=== PATIENT | female | born 1960 | race Caucasian/White ===

== ENCOUNTER 2020-08-08 09:12 | Emergency (ER) | payer MEDICARE, MEDICAID ==
[~2020-08-08] VITALS: Ht 167.6 cm; Wt 100.0 kg
[2020-08-08 09:24] VITALS: BP 142/94
[2020-08-08] MEDS ORDERED: normal saline 1000ML IV soln IVB ONE (09:30)
[2020-08-08] MEDS ORDERED: ondansetron/PF 4mg/2ml inj IV ONE (09:30)
[2020-08-08 10:30] LABS: BASOPHILS # (AUTO) 0.1 X10'3 (0-0.2); BASOPHILS % (AUTO) 0.7 % (0-1); EOSINOPHILS # (AUTO) 0.1 X10'3 (0-0.9); EOSINOPHILS % (AUTO) 1.3 % (0-6); HEMOGLOBIN 13.2 g/dl (12.0-16.0); LYMPHOCYTES # (AUTO) 1.2 X10'3 (1.1-4.8); LYMPHOCYTES % (AUTO) 13.2 % (21-51); MEAN CORPUSCULAR HGB CONC 32.2 g/dL (33.0-36.5); MEAN PLATELET VOLUME 8.7 FL (7.4-10.4); MONOCYTES # (AUTO) 0.6 X10'3 (0-0.9); MONOCYTES % (AUTO) 6.8 % (2-12); NEUTROPHILS # (AUTO) 6.9 X10'3 (1.8-7.7); PLATELET COUNT 202 X10'3 (140-440); RED CELL DISTRIBUTION WIDTH 14.1 % (11.5-14.5); WHITE BLOOD COUNT 8.9 X10'3 (4.5-11.0)
[2020-08-08 10:38] LABS: ALANINE AMINOTRANSFERASE 32 U/L (12-78); ALBUMIN 3.5 G/DL (3.4-5.0); ALBUMIN/GLOBULIN RATIO 0.9 (1.1-1.5); ALKALINE PHOSPHATASE 62 IU/L (46-116); ANION GAP 12 (8-16); ASPARTATE AMINO TRANSFERASE 17 U/L (10-37); BILIRUBIN,TOTAL 0.4 MG/DL (0.1-1.0); BLOOD UREA NITROGEN 24 MG/DL (7-18); CALCIUM 8.8 MG/DL (8.5-10.1); CHLORIDE 113 MMOL/L (99-107); CREATININE 1.33 MG/DL (0.40-0.90); GLUCOSE 156 MG/DL (70-104); LIPASE 229 U/L (73-393); POTASSIUM 4.3 MMOL/L (3.5-5.1); SODIUM 146 MMOL/L (135-145); TOTAL CARBON DIOXIDE 21.1 MMOL/L (24-32); TOTAL PROTEIN 7.3 G/DL (6.4-8.2); TROPONIN I < 0.04 NG/ML (0.0-0.05); eGFR 41 ML/MIN
[2020-08-08 11:17] LABS: CLARITY,URINE CLEAR (Clear); COLOR,URINE YELLOW (Yellow); GLUCOSE, URINE NEGATIVE (Neg); KETONES,URINE TRACE mg/dl (Neg); LEUKOCYTE ESTERASE ,URINE NEGATIVE (Neg); NITRITES, URINE NEGATIVE (Neg); OCCULT BLOOD,URINE NEGATIVE (Neg); PH,URINE 5.5 (4.8-8.0); PROTEIN,URINE TRACE mg/dl (Neg); UROBILINOGEN,URINE 0.2 E.U/dL (0.2-1.0)
[2020-08-08 11:18] LABS: UA COLLECTION TYPE CLN CATCH MIDSTREAM; URINE HCG NEGATIVE (NEG)
[2020-08-08 11:26] LABS: MUCUS STRANDS MODERATE /LPF (Neg); SQUAMOUS EPITHELIAL CELL,UR MODERATE /LPF (FEW)
[2020-08-08 11:28] LABS: BACTERIA,URINE FEW /HPF (Neg); RBC,URINE 0-2 /HPF (0-2); WBC,URINE 0-4 /HPF (0-4)
[2020-08-08] MEDS ORDERED: pantoprazole 40 MG vial IV ONE (11:50)
[2020-08-08] MEDS ORDERED: mag hydrox/Alum hydrox/simeth 30ml oral suspension PO ONE (11:50)
[2020-08-08] MEDS ORDERED: iohexol 350MG/ML 100ml bottle IV ONE (12:48)
[2020-08-08] MEDS ORDERED: iohexol 300mg/ml 100ml inj. ONE (12:49)
[2020-08-08] MEDS ORDERED: MESSAGE TO NURSING PO SCH (13:00)
[2020-08-08] MEDS ORDERED: LOPE2TAB25 PO ×2 (13:42→13:47)
[2020-08-08] MEDS ORDERED: LACT1CAP26 PO (13:42)
[2020-08-08] MEDS ORDERED: PANT-47 PO (13:42)
== END 2020-08-08 13:56 | disposition home or self-care (01) ==
LOC: ER 09:13
DX: K52.9 Noninfective gastroenteritis and colitis, unspecified (principal); E11.9 Type 2 diabetes mellitus without complications; Z90.49 Acquired absence of other specified parts of digestive tract; Z88.2 Allergy status to sulfonamides; Z88.1 Allergy status to other antibiotic agents; Z88.8 Allergy status to other drugs, medicaments and biological substances; Z79.899 Other long term (current) drug therapy
CPT/HCPCS: 36415; 74177; 80053; 81001; 81025; 83690; 84484; 85025; 93005; 96361; 96374; 99285; C9113; J7030; Q9967

== ENCOUNTER 2022-12-20 04:48 | Inpatient (IN) | payer MEDICARE, MEDICAID ==
[~2022-12-20] VITALS: Ht 165.1 cm; Wt 80.0 kg
[~2022-12-20 04:48] MED LIST: LACT1CAP26 PO; LOPE2TAB25 PO; PANT-47 PO
[2022-12-20] MEDS ORDERED: normal saline 1000ML IV soln IVB ONE (05:00)
[2022-12-20] MEDS ORDERED: aspirin 325mg tablet PO ONE ×2 (05:00→10:00)
[2022-12-20] MEDS ORDERED: ondansetron/PF 4mg/2ml inj IV ONE (05:15)
[2022-12-20] MEDS ORDERED: fentaNYL/PF 50MCG/1 ML 2ML syringe IV ONE (05:15)
[2022-12-20 05:42] LABS: BASOPHILS % (AUTO) 0.2 % (0-1); EOSINOPHILS # (AUTO) 0.1 X10'3 (0-0.9); EOSINOPHILS % (AUTO) 0.9 % (0-6); HEMATOCRIT 33.8 % (35.0-45.0); HEMOGLOBIN 11.3 g/dl (12.0-16.0); LYMPHOCYTES # (AUTO) 0.5 X10'3 (1.1-4.8); LYMPHOCYTES % (AUTO) 7.4 % (21-51); MEAN CORPUSCULAR HEMOGLOBIN 29.7 PG (27.0-31.0); MEAN CORPUSCULAR HGB CONC 33.4 g/dL (33.0-36.5); MEAN CORPUSCULAR VOLUME 88.9 FL (78-98); MEAN PLATELET VOLUME 8.4 FL (7.4-10.4); MONOCYTES # (AUTO) 0.2 X10'3 (0-0.9); MONOCYTES % (AUTO) 2.8 % (2-12); NEUTROPHILS % (AUTO) 88.7 % (42-75); PLATELET COUNT 147 X10'3 (140-440); RED CELL DISTRIBUTION WIDTH 13.7 % (11.5-14.5); WHITE BLOOD COUNT 6.8 X10'3 (4.5-11.0)
[2022-12-20 05:58] LABS: ALANINE AMINOTRANSFERASE 25 U/L (12-78); ALBUMIN 3.3 G/DL (3.4-5.0); ALBUMIN/GLOBULIN RATIO 0.9 (1.1-1.5); ALKALINE PHOSPHATASE 64 IU/L (46-116); ANION GAP 14 (8-16); BILIRUBIN,TOTAL 0.4 MG/DL (0.1-1.0); BLOOD UREA NITROGEN 15 MG/DL (7-18); BUN/CREATININE RATIO 11.2 (10.0-20.0); CALCIUM 9.2 MG/DL (8.5-10.1); CHLORIDE 105 MMOL/L (99-107); CREATININE 1.34 MG/DL (0.40-0.90); GLUCOSE 229 MG/DL (70-104); SODIUM 141 MMOL/L (135-145); TOTAL CARBON DIOXIDE 22.2 MMOL/L (24-32); TOTAL PROTEIN 6.9 G/DL (6.4-8.2); eGFR 40 ML/MIN
[2022-12-20] MEDS ORDERED: acetaminophen 325mg tablet PO ONE (06:05)
[2022-12-20 06:13] LABS: ASPARTATE AMINO TRANSFERASE 35 U/L (10-37); POTASSIUM 4.7 MMOL/L (3.5-5.1)
[2022-12-20] MEDS ORDERED: morphine 10mg/ml inj. IV ONE (06:40)
--- NOTE | 2022-12-20 07:46 | NUR ---
MD AND PRIMARY RN AWARE THAT PT IS REPORTING CHEST PAIN. REPEAT EKG IS DONE
[2022-12-20 08:25] LABS: CLARITY,URINE SLIGHTLY CLOUDY (Clear); COLOR,URINE YELLOW (Yellow); GLUCOSE, URINE NEGATIVE (Neg); KETONES,URINE NEGATIVE (Neg); LEUKOCYTE ESTERASE ,URINE SMALL (Neg); NITRITES, URINE POSITIVE (Neg); OCCULT BLOOD,URINE SMALL (Neg); PROTEIN,URINE 30 mg/dl (Neg); UROBILINOGEN,URINE 0.2 E.U/dL (0.2-1.0)
[2022-12-20 08:29] LABS: UA COLLECTION TYPE STRAIGHT CATH
[2022-12-20 08:30] LABS: BACTERIA,URINE 4+ /HPF (Neg); RBC,URINE NONE SEEN /HPF (0-2); WBC,URINE TNTC /HPF (0-4)
[2022-12-20] MEDS ORDERED: CefTRIAXone 2gm/D5W 50ml BAG 50 ML IV ONE (08:30)
[2022-12-20 08:31] LABS: MUCUS STRANDS NONE SEEN /LPF (Neg); SQUAMOUS EPITHELIAL CELL,UR FEW /LPF (FEW); WBC CLUMPS,URINE MODERATE /HPF (NEGATIVE)
[2022-12-20] MEDS ORDERED: GABA-530 PO (08:41)
[2022-12-20] MEDS ORDERED: LOVA20TA2 PO (08:41)
[2022-12-20] MEDS ORDERED: HYDR-3972 PO (08:41)
[2022-12-20] MEDS ORDERED: LIPA1CAP35 PO (08:41)
[2022-12-20] MEDS ORDERED: METF-438 PO (08:41)
[2022-12-20] MEDS ORDERED: ENAL-78 PO (08:41)
[2022-12-20] MEDS ORDERED: MORP-92 PO (08:41)
[2022-12-20] MEDS ORDERED: FAMO20TA8 PO (08:41)
[2022-12-20] MEDS ORDERED: ASPI-1265 PO (08:42)
[2022-12-20] MEDS ORDERED: CALC-801 PO (08:55)
[2022-12-20] MEDS ORDERED: MULT-1141 PO (08:55)
--- NOTE | 2022-12-20 08:58 | NUR ---
ECHO AT BEDSIDE
--- NOTE | 2022-12-20 09:42 | NUR ---
Pt's BP 84/58, 10 minutes after IV morphine administration. Pt has had 2,[address] Granado at bedside. Per , RN to order and administer 1L NaCl 0.9% IVF bolus. RN ordered via VORB. RN to administer.
[2022-12-20] MEDS ORDERED: normal saline 1000ml 1,000 ML IV ONE (09:45)
--- NOTE | 2022-12-20 09:55 | NUR ---
Critical lab result: troponin 4284. RN notified Dr. Granado, who is at bedside. notified Henrry. Per , will order heparin gtt.
[2022-12-20] MEDS ORDERED: morphine 2 MG/ML inj. syringe IV PRN (10:00)
[2022-12-20] MEDS ORDERED: potassium Cl 20 mEq SR tablet PO PRN ×2 (10:00)
[2022-12-20] MEDS ORDERED: heparin 25,000 UNIT/250ml bag 250 ML IV PRN (10:00)
[2022-12-20] MEDS ORDERED: heparin 10,000 units/1 ML INJ IV ONE (10:00)
[2022-12-20] MEDS ORDERED: glucagon, human recombinant 1mg kit SUBCUT PRN (10:00)
[2022-12-20] MEDS ORDERED: acetaminophen 650mg rectal suppository RC PRN (10:00)
[2022-12-20] MEDS ORDERED: acetaminophen 325mg tablet PO PRN (10:00)
[2022-12-20] MEDS ORDERED: heparin 10,000 units/1 ML INJ IV PRN (10:00)
[2022-12-20] MEDS ORDERED: magnesium 2GM in 50ml NS 50 ML IV PRN (10:00)
[2022-12-20] MEDS ORDERED: magnesium 4gm in 100ml NS 100 ML IV PRN (10:00)
[2022-12-20] MEDS ORDERED: potassium Cl 40MEQ/1/2NS 520ml 520 ML IV PRN (10:00)
[2022-12-20] MEDS ORDERED: DEXTROSE 15 GM of carb/4 tabs (each vial/BOTTLE has 4 tablets) PO PRN ×2 (10:00)
[2022-12-20] MEDS ORDERED: magnesium hydroxide 30ml (MOM) UD suspension PO PRN (10:00)
[2022-12-20] MEDS ORDERED: ondansetron 4mg rapidly disintigrating tab PO PRN (10:00)
[2022-12-20] MEDS ORDERED: dextrose 50%-water 50ml dispensing syringe IV PRN ×2 (10:00)
[2022-12-20] MEDS ORDERED: MESSAGE TO PHARMACY PO ONE (10:00)
[2022-12-20] MEDS ORDERED: HYDROcodone/acetaminophen 5mg/325mg tablet PO PRN (10:00)
[2022-12-20] MEDS ORDERED: mag hydrox/Alum hydrox/simeth 30ml oral suspension PO PRN (10:00)
[2022-12-20] MEDS ORDERED: magnesium Cl slow-release 64mg tablet PO PRN (10:00)
[2022-12-20 10:39] LABS: APTT 24 SECONDS (22-32)
[2022-12-20] MEDS: normal saline 1000ml 1,000 ML IV SCH ×2 (10:49→20:32)
[2022-12-20 10:52] LABS: CHOL/HDL RATIO 3.6 (0.00-4.99); CHOLESTEROL 145 MG/DL (0-200); HDL CHOLESTEROL 40 MG/DL (35-60); LDL CHOLESTEROL 58 MG/DL (50-100); TRIGLYCERIDES 290 MG/DL (20-135)
--- NOTE | 2022-12-20 11:58 | NUR ---
Pt transferred to U 3009 A. VS WNL. Heparin gtt infusing at 900 u/hr. Report given to SAJI Wilde.
[2022-12-20 13:00] VITALS: BP 107/58
[2022-12-20] MEDS: HYDROcodone/acetaminophen 10/325mg tab PO PRN ×3 (13:05→20:56)
[2022-12-20] MEDS ORDERED: DIPH25CA83 PO (14:35)
[2022-12-20] MEDS: acetaminophen 325mg tablet PO PRN (15:09)
[2022-12-20] MEDS: morphine 2 MG/ML inj. syringe IV PRN (15:15)
[2022-12-20 18:00] VITALS: BP 98/51
--- NOTE | 2022-12-20 18:23 | NUR ---
Patient in room PCU 3009. I have received report from Andry LENNON and had the opportunity to ask questions and assume patient care.
--- NOTE | 2022-12-20 19:34 | NUR ---
PTT lab came back with therapeutic range at 47. New lab scheduled for 23:15.
[2022-12-20] MEDS: K and/or MAG REPLACEMENT MC SCH (20:00)
[2022-12-20] MEDS: docusate sod 100mg capsule PO SCH (20:33)
[2022-12-20] MEDS: insulin glargine (Lantus) pen - multi-dose SQ SCH (21:00)
[2022-12-20] MEDS ORDERED: temazepam 15mg capsule PO PRN (21:00)
[2022-12-20 23:15] VITALS: BP 92/52
[2022-12-20 23:58] LABS: APTT 39 SECONDS (22-32)
--- NOTE | 2022-12-21 00:39 | NUR ---
2315 PTT lab came back at 39. 3000 unit bolus was given and rate increased to 1100 units per hour. Addendum: 12/21/22 at 0042 by Marcia Obregon RN Next lab scheduled for 614.
[2022-12-21 02:00] VITALS: BP 96/68
[2022-12-21] MEDS: HYDROcodone/acetaminophen 10/325mg tab PO PRN ×5 (02:35→20:48)
[2022-12-21] MEDS: acetaminophen 325mg tablet PO PRN ×3 (03:42→22:21)
[2022-12-21] MEDS: normal saline 1000ml 1,000 ML IV SCH ×2 (06:00→17:00)
--- NOTE | 2022-12-21 06:30 | NUR ---
Problems reprioritized. Patient report given, questions answered & plan of care reviewed with Andry LENNON.
[2022-12-21 06:41] LABS: BASOPHILS % (AUTO) 0.4 % (0-1); EOSINOPHILS # (AUTO) 0.2 X10'3 (0-0.9); EOSINOPHILS % (AUTO) 2.2 % (0-6); HEMATOCRIT 28.3 % (35.0-45.0); HEMOGLOBIN 9.2 g/dl (12.0-16.0); LYMPHOCYTES # (AUTO) 1.6 X10'3 (1.1-4.8); LYMPHOCYTES % (AUTO) 20.3 % (21-51); MEAN CORPUSCULAR HEMOGLOBIN 29.2 PG (27.0-31.0); MEAN CORPUSCULAR HGB CONC 32.5 g/dL (33.0-36.5); MEAN CORPUSCULAR VOLUME 90.1 FL (78-98); MEAN PLATELET VOLUME 8.4 FL (7.4-10.4); MONOCYTES # (AUTO) 0.8 X10'3 (0-0.9); MONOCYTES % (AUTO) 9.9 % (2-12); NEUTROPHILS # (AUTO) 5.4 X10'3 (1.8-7.7); NEUTROPHILS % (AUTO) 67.2 % (42-75); PLATELET COUNT 115 X10'3 (140-440); RED BLOOD COUNT 3.15 X10'6 (4.20-5.60); RED CELL DISTRIBUTION WIDTH 13.9 % (11.5-14.5)
[2022-12-21 07:00] VITALS: BP 118/66
--- NOTE | 2022-12-21 07:02 | NUR ---
please ignore the I&O documentation. it was entered on a wrong patient. Addendum: 12/21/22 at 0704 by Whit Stock RN Amended: Links added.
[2022-12-21 07:04] LABS: ALANINE AMINOTRANSFERASE 19 U/L (12-78); ALBUMIN 2.5 G/DL (3.4-5.0); ALBUMIN/GLOBULIN RATIO 0.8 (1.1-1.5); ALKALINE PHOSPHATASE 56 IU/L (46-116); ANION GAP 9 (8-16); ASPARTATE AMINO TRANSFERASE 35 U/L (10-37); BILIRUBIN,TOTAL 0.2 MG/DL (0.1-1.0); BLOOD UREA NITROGEN 12 MG/DL (7-18); BUN/CREATININE RATIO 11.1 (10.0-20.0); CALCIUM 8.1 MG/DL (8.5-10.1); CHLORIDE 110 MMOL/L (99-107); CREATININE 1.08 MG/DL (0.40-0.90); GLUCOSE 144 MG/DL (70-104); MAGNESIUM 1.9 MG/DL (1.5-2.4); PHOSPHORUS 3.7 MG/DL (2.3-4.5); POTASSIUM 4.2 MMOL/L (3.5-5.1); SODIUM 143 MMOL/L (135-145); TOTAL CARBON DIOXIDE 23.7 MMOL/L (24-32); TOTAL PROTEIN 5.8 G/DL (6.4-8.2); eGFR 51 ML/MIN
[2022-12-21] MEDS: docusate sod 100mg capsule PO SCH ×2 (07:12→19:04)
[2022-12-21] MEDS: CefTRIAXone/D5W-Rocephin 1gm 50 ML IV SCH (07:12)
[2022-12-21] MEDS: aspirin 81mg, enteric-coated 1 TAB TABLET.DR PO SCH (07:13)
[2022-12-21] MEDS: K and/or MAG REPLACEMENT MC SCH ×2 (08:00→19:03)
--- NOTE | 2022-12-21 10:37 | NUR ---
Nutrition consult: Per EMR pt with T2DM, well controlled with A1c 7.1%. Written DM education with RD contact information placed in patient's chart. Malnutrition risk screen with RN pending at this time. Per EMR pt admit for NSTEMI, sepsis, and UTI with CKD III. Pt on a heart healthy CHO controlled diet and eating well, documented with 75-100% PO intake of first three meals. Pt will meet estimated nutrient needs if she continues with this PO intake. LBM 12/19, receiving routine bowel care. No nutrition intervention implemented at this time. Will continue to follow. Recommendations: 1) Continue heart healthy CHO controlled diet 2) Monitor need for ONS/additional protein 3) Routine bowel care 4) Scaled weight this admit; subsequent weekly scaled weights Addendum: 12/21/22 at [address] Amended: Links added.
[2022-12-21 11:00] VITALS: BP 109/58
[2022-12-21] MEDS: ondansetron/PF 4mg/2ml inj IV PRN ×2 (14:40→20:47)
[2022-12-21 15:00] VITALS: BP 148/75
[2022-12-21] MEDS ORDERED: non-formulary drug (Lovastatin* (Mevacor*) 1 TAB) PO SCH (17:10)
[2022-12-21 18:00] VITALS: BP 148/81
[2022-12-21] MEDS: morphine ER 15mg tablet PO SCH (19:04)
[2022-12-21] MEDS: famotidine 20mg tablet PO SCH (19:05)
[2022-12-21] MEDS: metoprolol tartrate 12.5mg (1/2 tablet) PO SCH (19:05)
[2022-12-21] MEDS: insulin Lispro (HumaLOG) vial - multi-dose SQ SCH (19:08)
[2022-12-21] MEDS ORDERED: HYDROcodone/acetaminophen 10/325mg tab PO SCH (20:00)
[2022-12-21] MEDS: insulin glargine (Lantus) pen - multi-dose SQ SCH (21:06)
[2022-12-21 22:14] VITALS: BP 128/74
[2022-12-22] MEDS: gabapentin 100mg capsule PO SCH ×2 (00:03→07:42)
[2022-12-22] MEDS: normal saline 1000ml 1,000 ML IV SCH (00:47)
[2022-12-22] MEDS: HYDROcodone/acetaminophen 10/325mg tab PO PRN ×3 (00:49→10:40)
[2022-12-22 02:43] VITALS: BP 116/74
[2022-12-22] MEDS: morphine 2 MG/ML inj. syringe IV PRN ×2 (05:35→12:46)
[2022-12-22 06:30] VITALS: BP 129/58
--- NOTE | 2022-12-22 06:37 | NUR ---
Patient in room PCU 3009. I have received report from SAJI Sandoval and had the opportunity to ask questions and assume patient care.
[2022-12-22 07:36] LABS: BASOPHILS % (AUTO) 0.4 % (0-1); EOSINOPHILS # (AUTO) 0.1 X10'3 (0-0.9); EOSINOPHILS % (AUTO) 2.4 % (0-6); HEMATOCRIT 29.5 % (35.0-45.0); HEMOGLOBIN 9.6 g/dl (12.0-16.0); LYMPHOCYTES # (AUTO) 0.8 X10'3 (1.1-4.8); LYMPHOCYTES % (AUTO) 14.7 % (21-51); MEAN CORPUSCULAR HEMOGLOBIN 29.4 PG (27.0-31.0); MEAN CORPUSCULAR HGB CONC 32.7 g/dL (33.0-36.5); MEAN CORPUSCULAR VOLUME 89.8 FL (78-98); MEAN PLATELET VOLUME 8.4 FL (7.4-10.4); MONOCYTES # (AUTO) 0.5 X10'3 (0-0.9); MONOCYTES % (AUTO) 9.6 % (2-12); NEUTROPHILS # (AUTO) 4.1 X10'3 (1.8-7.7); NEUTROPHILS % (AUTO) 72.9 % (42-75); PLATELET COUNT 123 X10'3 (140-440); RED BLOOD COUNT 3.28 X10'6 (4.20-5.60); RED CELL DISTRIBUTION WIDTH 13.8 % (11.5-14.5); WHITE BLOOD COUNT 5.7 X10'3 (4.5-11.0)
[2022-12-22] MEDS: CefTRIAXone/D5W-Rocephin 1gm 50 ML IV SCH (07:42)
[2022-12-22] MEDS: metoprolol tartrate 12.5mg (1/2 tablet) PO SCH (07:42)
[2022-12-22] MEDS: aspirin 81mg, enteric-coated 1 TAB TABLET.DR PO SCH (07:43)
[2022-12-22] MEDS: morphine ER 15mg tablet PO SCH (07:43)
[2022-12-22] MEDS: famotidine 20mg tablet PO SCH (07:43)
[2022-12-22] MEDS: docusate sod 100mg capsule PO SCH (07:46)
[2022-12-22 07:52] LABS: ALANINE AMINOTRANSFERASE 18 U/L (12-78); ALBUMIN 2.7 G/DL (3.4-5.0); ALBUMIN/GLOBULIN RATIO 0.8 (1.1-1.5); ALKALINE PHOSPHATASE 65 IU/L (46-116); ANION GAP 7 (8-16); ASPARTATE AMINO TRANSFERASE 29 U/L (10-37); BILIRUBIN,TOTAL 0.2 MG/DL (0.1-1.0); BLOOD UREA NITROGEN 6 MG/DL (7-18); BUN/CREATININE RATIO 5.5 (10.0-20.0); CALCIUM 8.3 MG/DL (8.5-10.1); CHLORIDE 111 MMOL/L (99-107); GLUCOSE 137 MG/DL (70-104); MAGNESIUM 1.8 MG/DL (1.5-2.4); PHOSPHORUS 3.2 MG/DL (2.3-4.5); POTASSIUM 4.1 MMOL/L (3.5-5.1); SODIUM 142 MMOL/L (135-145); TOTAL CARBON DIOXIDE 23.8 MMOL/L (24-32); TOTAL PROTEIN 6.3 G/DL (6.4-8.2); eGFR 50 ML/MIN
[2022-12-22] MEDS: K and/or MAG REPLACEMENT MC SCH (08:00)
[2022-12-22] MEDS: AMYLASE PO SCH ×2 (08:00→12:45)
[2022-12-22] MEDS ORDERED: lisinopril 20mg tablet PO SCH (08:00)
[2022-12-22] MEDS ORDERED: atorvastatin 20mg tablet PO SCH (08:00)
[2022-12-22] MEDS: PROTEASE PO SCH ×2 (08:00→12:45)
[2022-12-22] MEDS: LIPASE PO SCH ×2 (08:00→12:45)
[2022-12-22] MEDS ORDERED: aspirin 81mg tab.chew PO SCH (08:00)
[2022-12-22] MEDS: insulin Lispro (HumaLOG) vial - multi-dose SQ SCH ×2 (09:08→13:33)
[2022-12-22 10:30] VITALS: BP 144/87
[2022-12-22] MEDS ORDERED: CEFD300C3 PO (10:32)
[2022-12-22] MEDS ORDERED: NYST1000 PO (10:34)
[2022-12-22] MEDS ORDERED: ATOR20TA66 PO (10:45)
[2022-12-22] MEDS ORDERED: LOP12.5T PO (10:45)
[2022-12-22] MEDS ORDERED: nystatin 500,000 unit/5ML UD oral suspension PO SCH (13:00)
[2022-12-22] MEDS ORDERED: gabapentin 400mg capsule PO SCH (13:26)
--- NOTE | 2022-12-22 16:07 | NUR ---
Pt stable for D/C per MD orders. PIV x 1 removed, pt tolerated well. Tele removed and returned to television writer. All d/c ppwk was rev'd with patient and patient verbalized understanding. Zackary in room. All questions, comments, and concerns were answered at this time. All personal belongings were sent with patient. [place] [facility] [place] [facility] [place] in w/c to private vehicle. RX from pharmacy was returned to patient.
[2022-12-23] MEDS ORDERED: famotidine 20mg tablet PO SCH (08:00)
== END 2022-12-22 14:16 | disposition home or self-care (01) | DRG 871 ==
LOC: ER 04:48 → ED HOLD 10:03 → PCU 3S 11:38
PROVIDERS: ADMIT Family Medicine; ATTEND Family Medicine
DX: A41.51 Sepsis due to Escherichia coli [E. coli] (principal); I21.A1 Myocardial infarction type 2; N12 Tubulo-interstitial nephritis, not specified as acute or chronic; I12.9 Hypertensive chronic kidney disease with stage 1 through stage 4 chronic kidney disease, or unspecified chronic kidney disease; E11.42 Type 2 diabetes mellitus with diabetic polyneuropathy; G89.29 Other chronic pain; N18.30 Chronic kidney disease, stage 3 unspecified; K21.9 Gastro-esophageal reflux disease without esophagitis; E78.5 Hyperlipidemia, unspecified; E11.22 Type 2 diabetes mellitus with diabetic chronic kidney disease; R32 Unspecified urinary incontinence; Z79.84 Long term (current) use of oral hypoglycemic drugs; Z86.14 Personal history of Methicillin resistant Staphylococcus aureus infection; Z88.2 Allergy status to sulfonamides; Z89.612 Acquired absence of left leg above knee; Z91.048 Other nonmedicinal substance allergy status; Z97.14 Presence of artificial left leg (complete) (partial); Z88.8 Allergy status to other drugs, medicaments and biological substances; Z90.49 Acquired absence of other specified parts of digestive tract; Z79.899 Other long term (current) drug therapy; Z79.82 Long term (current) use of aspirin
CPT/HCPCS: 36415; 71045; 74176; 80053; 80061; 81001; 82948; 83036; 83605; 83735; 83880; 84100; 84145; 84443; 84484; 85025; 85610; 85730; 87040; 87077; 87081; 87088; 87186; 93005; 93306; 97161; 97530; 99285; G0378; J0696; J1644; J1815; J2270; J2274; J2405; J3010; J7030; J7040

== ENCOUNTER 2025-05-25 07:36 | Day surgery (SDC) | payer MEDICARE, MEDICAID ==
[~2025-05-25] VITALS: Ht 165.1 cm; Wt 80.1 kg
[2025-05-25] VITALS (9 sets, daily range): BP systolic 99–132; BP diastolic 60–80; PULSE 55–72; RESP 12–16; TEMP 97.2; O2SAT 93–98
[2025-05-25] MEDS: ceFAZolin 2gm/dext,iso 50mL 50 ML IV ONE (05:30)
[~2025-05-25 07:36] MED LIST changes: +AMLO5TAB16 PO; +ASPI-1265 PO; +DOCUMENT DATE & TIME OF BETA-BLOCKER PO ONE; +EMPA25TA PO; +GABA300C PO; +GLIP2.5T29 PO; +HYDR-3972 PO; -LACT1CAP26 PO; +LIPA1CAP35 PO; -LOPE2TAB25 PO; +MELO-102 PO; +METF-438 PO; +METO25TA6 PO; +MORP15TA5 PO; -PANT-47 PO; +PANT20TA18 PO; +ROSU10TA98 PO
--- NOTE | 2025-05-25 08:14 | ELECTROCARDIOGRAPH REPORT ---
[facility] Test Date: 2025-05-25 Test Time: 08:12:20 Pat Name: LG MYERS Department: [facility] Patient ID: [facility]-[id number] Room: Gender: F Parts Department Supervisor: AMBROSE : 1960 Requested By: MARK LINTON Order Number: [id number] Reading MD: Dr. Jamie Fong Measurements Intervals [place] Rate: 59 P: 53 CO: 162 QRS: 80 QRSD: 111 T: 55 QT: 428 QTc: 424 Interpretive Statements Sinus bradycardia Low voltage, precordial leads Non-specific T-wave changes Electronically Signed On 05-25-2025 8:30:[address] Jamie Fong Please click the below link to view image of tracing.
[2025-05-25] MEDS: ringers solution, lacted 1,000 ML IV SCH (08:51)
[2025-05-25 08:56] LABS: MEAN PLATELET VOLUME 8.4 FL (7.4-10.4); PRE OP HEMATOCRIT 38.7 % (35.0-45.0); PRE OP HEMOGLOBIN 12.8 g/dL (12.0-16.0); PRE OP PLATELET COUNT 171 X10'3 (140-440); PRE OP WHITE BLOOD COUNT 5.3 10'3 (4.8-10.8); RED CELL DISTRIBUTION WIDTH 13.2 % (11.5-14.5)
[2025-05-25 09:09] LABS: CREATININE 1.11 MG/DL (0.40-0.90); PRE OP ALT 14 U/L (30-65); PRE OP ANION GAP 8 (8-16); PRE OP AST 22 U/L (10-37); PRE OP BILIRUB, TOTAL 0.3 MG/DL (0.0-1.0); PRE OP GLUCOSE 163 MG/DL (70-104); PRE OP POTASSIUM 4.2 MMOL/L (3.4-5.1); PRE OP SODIUM 140 MMOL/L (135-145); TOTAL CARBON DIOXIDE 26.3 MMOL/L (24-32); eCRCL 45 ML/MIN; eGFR 49 ML/MIN
[2025-05-25] MEDS ORDERED: propofol inj 20 ML IV ONE (10:22)
[2025-05-25] MEDS: BUPIVAcaine/PF 2.5mg/ml (0.25%) 10ml vial IJ ONE (10:32)
[2025-05-25] MEDS ORDERED: hydrALAZINE 20mg/ml inj. IV PRN (11:15)
[2025-05-25] MEDS ORDERED: ringers solution, lacted 1,000 ML IV SCH (11:15)
[2025-05-25] MEDS ORDERED: labetalol 20mg/4ml (5mg/ml) syringe IV PRN (11:15)
[2025-05-25] MEDS ORDERED: ondansetron/PF 4mg/2ml inj IV PRN (11:15)
[2025-05-25] MEDS ORDERED: fentaNYL/PF 50MCG/1 ML 2ML syringe IV PRN ×2 (11:15)
[2025-05-25] MEDS ORDERED: HYDROmorphone/PF 0.2 MG/ML SYRINGE IV PRN (11:15)
--- NOTE | 2025-05-25 11:28 | OPERATIVE REPORT ---
Operative Report Providers to ~ Date of Procedure: May 25, 2025 Pre-Operative Diagnosis: Dehiscence of surgical wound left thumb Post-Operative Diagnosis SAME as PRE-Op Procedure Performed Debridement and secondary closure of dehisced surgical wound left thumb Surgeon: Juan Brenner MD Skills Trainer None Anesthesiologist: Aamir Hoskins Type of Anesthesia: Other (Local) Findings: Complications None Prosthetics\Implants used: None Estimated Blood Loss: None Specimen Removed: Deep wound culture Description of Procedure: The patient is a 64-year-old who within the past month underwent surgery with the anchor line suture placement with the corkscrews in the 2nd metacarpal and base of the 1st metacarpal. We then several weeks to noted dehiscence of the central part of the surgical wound. This failed to heal and tendons could be seen below. It was obvious this was not going to heal so surgery is indicated to identify the infection and achieve wound closure. Risks and benefits were discussed with the patient including but not limited to continued infection stiffness pain and loss of function. She agreed to proceed. In the operating room the arm was prepped and draped in usual manner with a tourniquet on the forearm. Local anesthetic was infiltrated proximal to the thumb area and the entire surgical incision was incised. We made a point to extend the incision around the nonhealing area to leave fresh tissue for later suture. Once this is done deep wound culture was obtained. Debridement was done with removal of what appeared to be scar tissue and nonviable tissue. The anchor in the thumb metacarpal was loose and so this was removed along with a portion of the suture. We did not remove the anchor from the deep area of the 2nd metacarpal. Thorough debridement was done followed by irrigation with a antiseptic solution. The incision was then closed only at the skin level with a 4-0 Prolene suture. A sterile dressing was applied including a splint. The tourniquet was released the hand perfused well and the patient was taken to the recovery room in stable condition. JUAN BRENNER Jr., MD May 25, 2025 11:28
[2025-05-25] MEDS: HYDROmorphone/PF 0.2 MG/ML SYRINGE IV PRN (11:37)
[2025-05-25] MEDS: acetaminophen 1,000mg/100ml IV 100 ML IV PRN (11:37)
== END 2025-05-25 12:02 | disposition home or self-care (01) ==
LOC: PAS 07:36
PROVIDERS: ATTEND Orthopaedic Surgery Hand Surgery
DX: T81.31XA Disruption of external operation (surgical) wound, not elsewhere classified, initial encounter (principal); I10 Essential (primary) hypertension; E11.9 Type 2 diabetes mellitus without complications; K21.9 Gastro-esophageal reflux disease without esophagitis; E78.5 Hyperlipidemia, unspecified; Z79.2 Long term (current) use of antibiotics; Z79.4 Long term (current) use of insulin; Z79.84 Long term (current) use of oral hypoglycemic drugs; Z79.891 Long term (current) use of opiate analgesic; Z79.899 Other long term (current) drug therapy; Z90.49 Acquired absence of other specified parts of digestive tract; Z98.891 History of uterine scar from previous surgery; Z98.890 Other specified postprocedural states; Z88.1 Allergy status to other antibiotic agents; Z88.2 Allergy status to sulfonamides; Z88.8 Allergy status to other drugs, medicaments and biological substances; Y83.8 Other surgical procedures as the cause of abnormal reaction of the patient, or of later complication, without mention of misadventure at the time of the procedure; Y92.89 Other specified places as the place of occurrence of the external cause
CPT/HCPCS: 11043; 13160; 36415; 80053; 82948; 85025; 87070; 87075; 93005; A4618; A6222; A6402; A6449; A7000; J0131; J1171; J2704; J3490; J7030; J7120; Z7506; Z7512; Z7610

== ENCOUNTER → 2025-06-05 | Outpatient (CLI) | payer MEDICARE, MEDICAID ==
[~2025-06-05] MED LIST changes: -DOCUMENT DATE & TIME OF BETA-BLOCKER PO ONE
--- NOTE | 2025-06-05 18:52 | VASCULAR REPORT ---
Right lower extremity venous duplex Clinical History: Right lower extremity swelling Comparison: None Technique: Duplex Doppler evaluation of the deep venous system of the right lower extremity from the common femoral vein to the popliteal vein including color Doppler and spectral/pulsed waveform analysis was performed. Findings: The common femoral vein demonstrates appropriate compressibility and waveform variability. There is compressibility/patency of the great saphenous vein at the proximal thigh. The femoral vein demonstrates appropriate compressibility and waveform variability. The deep femoral vein demonstrates appropriate compressibility and waveform variability. The popliteal vein demonstrates appropriate compressibility and waveform variability. There is normal compressibility at the tibioperoneal trunk. Impression: 1. No right femoropopliteal venous thrombosis. 2. Contralateral common femoral vein is patent.
== END | disposition home or self-care (01) ==
LOC: RAD 15:20
PROVIDERS: ATTEND Physician Assistant
DX: M79.604 Pain in right leg (principal); T81.31XS Disruption of external operation (surgical) wound, not elsewhere classified, sequela; X58.XXXS Exposure to other specified factors, sequela
CPT/HCPCS: 93971